=== PATIENT | female | born 1990 ===

== ENCOUNTER 2018-06-19 11:30 | Emergency (ER) | payer SELFPAY ==
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
[2018-06-19] MEDS ORDERED: NO HOME MEDS (14:43)
[2018-06-19] MEDS ORDERED: LEVO88TA2 PO (15:08)
[2018-06-19] MEDS ORDERED: ESCI10TA PO (15:08)
[2018-06-19] MEDS ORDERED: METH10TA4 PO (15:08)
== END 2018-06-19 11:40 | disposition left against medical advice (07) ==
LOC: ER 11:31
DX: Z00.8 Encounter for other general examination (principal); Z53.21 Procedure and treatment not carried out due to patient leaving prior to being seen by health care provider

== ENCOUNTER 2018-06-19 12:12 | Emergency (ER) | payer OTHER ==
[~2018-06-19] VITALS: Ht 167.6 cm; Wt 30.0 kg
[2018-06-19] MEDS ORDERED: haloperidol lactate 5mg/ml inj IM ONE (12:25)
[2018-06-19] MEDS ORDERED: LORazepam 2 mg/ml vial IM ONE (12:25)
[2018-06-19] MEDS ORDERED: diphenhydrAMINE 50 mg/ml inj IM ONE (12:25)
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
[2018-06-19 13:02] LABS: BASOPHILS % (AUTO) 0.2 % (0-1); EOSINOPHILS % (AUTO) 0 % (0-6); HEMATOCRIT 34.2 % (35.0-45.0); HEMOGLOBIN 11.4 g/dl (12.0-16.0); LYMPHOCYTES # (AUTO) 1.1 X10'3 (1.1-4.8); LYMPHOCYTES % (AUTO) 13.1 % (21-51); MEAN CORPUSCULAR HEMOGLOBIN 28.5 PG (27.0-31.0); MEAN CORPUSCULAR HGB CONC 33.4 g/dL (33.0-36.5); MEAN CORPUSCULAR VOLUME 85.3 FL (78-98); MONOCYTES # (AUTO) 0.6 X10'3 (0-0.9); MONOCYTES % (AUTO) 6.9 % (2-12); NEUTROPHILS # (AUTO) 6.4 X10'3 (1.8-7.7); NEUTROPHILS % (AUTO) 79.8 % (42-75); PLATELET COUNT 256 X10'3 (140-440); RED BLOOD COUNT 4.01 X10'6 (4.20-5.60); RED CELL DISTRIBUTION WIDTH 13.8 % (11.5-14.5)
[2018-06-19 13:11] LABS: URINE HCG NEGATIVE (NEG)
[2018-06-19 13:12] LABS: CLARITY,URINE SLIGHTLY CLOUDY (Clear); COLOR,URINE YELLOW (Yellow); GLUCOSE, URINE NEGATIVE (Neg); KETONES,URINE 15 mg/dl (Neg); LEUKOCYTE ESTERASE ,URINE NEGATIVE (Neg); NITRITES, URINE NEGATIVE (Neg); OCCULT BLOOD,URINE MODERATE (Neg); PROTEIN,URINE TRACE mg/dl (Neg); UROBILINOGEN,URINE 0.2 E.U/dL (0.2-1.0)
[2018-06-19 13:18] LABS: UA COLLECTION TYPE STRAIGHT CATH
[2018-06-19 13:20] LABS: BACTERIA,URINE FEW /HPF (Neg); MUCUS STRANDS FEW /LPF (Neg); RBC,URINE 50-100 /HPF (0-2); SQUAMOUS EPITHELIAL CELL,UR FEW /LPF (FEW); WBC,URINE 0-4 /HPF (0-4)
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
[2018-06-19 13:23] LABS: URINE AMPHETAMINE SCREEN NEGATIVE (Neg); URINE BARBITUATE SCREEN NEGATIVE (Neg); URINE BENZODIAZEPINES SCREEN NEGATIVE (Neg); URINE CANNABINOID SCREEN POSITIVE (Neg); URINE COCAINE SCREEN NEGATIVE (Neg); URINE METHADONE SCREEN NEGATIVE (Neg); URINE OPIATE SCREEN NEGATIVE (Neg); URINE PHENCYCLIDINE SCREEN NEGATIVE (Neg)
[2018-06-19 13:24] LABS: ALANINE AMINOTRANSFERASE 34 U/L (12-78); ALBUMIN 4.1 G/DL (3.4-5.0); ALBUMIN/GLOBULIN RATIO 1.3 (1.1-1.5); ALKALINE PHOSPHATASE 23 IU/L (46-116); ANION GAP 12 (8-16); ASPARTATE AMINO TRANSFERASE 16 U/L (10-37); BILIRUBIN,TOTAL 0.3 MG/DL (0.1-1.0); BLOOD UREA NITROGEN 8 MG/DL (7-18); BUN/CREATININE RATIO 13.8 (6.6-38.0); CALCIUM 8.9 MG/DL (8.5-10.1); CHLORIDE 104 MMOL/L (99-107); CREATININE 0.58 MG/DL (0.40-0.90); GLUCOSE 122 MG/DL (70-104); POTASSIUM 3.3 MMOL/L (3.5-5.1); SODIUM 140 MMOL/L (135-145); TOTAL CARBON DIOXIDE 23.8 MMOL/L (24-32); TOTAL PROTEIN 7.2 G/DL (6.4-8.2); eGFR > 90 ML/MIN
[2018-06-19 13:33] LABS: ETHANOL < 0.010 GM/DL (0.0-0.010)
--- NOTE | 2018-06-19 14:32 | NUR ---
REPORT GIVEN TO YAMILETH SUNSHINE
[2018-06-19] MEDS ORDERED: NO HOME MEDS (14:43)
--- NOTE | 2018-06-19 14:44 | NUR ---
Spoke with Kirt from [facility]. Dr Hernandez will be in to see pt later today.
[2018-06-19] MEDS ORDERED: LEVO88TA2 PO (15:08)
[2018-06-19] MEDS ORDERED: ESCI10TA PO (15:08)
[2018-06-19] MEDS ORDERED: METH10TA4 PO (15:08)
[2018-06-19] MEDS ORDERED: potassium Cl oral solution 20 MEQ/15 ML PO ONE (17:25)
[2018-06-19 17:39] VITALS: BP 111/69
--- NOTE | 2018-06-19 17:47 | NUR ---
Called [facility] to request lab work for past year. They will be faxing this to us.
[2018-06-19] MEDS ORDERED: risperiDONE 0.5mg tablet PO PRN (18:30)
[2018-06-19] MEDS ORDERED: LORazepam 1 MG tablet PO PRN (18:30)
[2018-06-19] MEDS ORDERED: methylphenidate 5mg tablet PO SCH (20:00)
[2018-06-19] MEDS ORDERED: non-formulary drug (Methylphenidate Hcl (Ritalin) 1 TAB) PO SCH (20:00)
--- NOTE | 2018-06-19 20:00 | NUR ---
The patient has been interviewed by Dr. Walker and the [facility] crisis staff. She was cooperative with the evening assessment. She is talking fast but what she is saying is logical and linear. She denies having psychotic symptoms. She is reporting of feeling very fatiqued.
[2018-06-20] MEDS ORDERED: levoTHYROXINE 88mcg tablet PO SCH (08:00)
[2018-06-20] MEDS ORDERED: citalopram 20mg tablet PO SCH (08:00)
== END 2018-06-19 20:37 | disposition home or self-care (01) ==
LOC: ER 12:12
DX: F23 Brief psychotic disorder (principal); F12.90 Cannabis use, unspecified, uncomplicated; Z88.8 Allergy status to other drugs, medicaments and biological substances; Z79.899 Other long term (current) drug therapy
CPT/HCPCS: 36415; 80053; 80305; 80320; 81001; 81025; 84443; 85025; 96372; 99285; J1200; J1630; J2060